=== PATIENT | female | born 1965 | race Caucasian/White ===

== ENCOUNTER 2022-09-10 11:30 | Day surgery (SDC) | payer BC ==
[2022-09-08 12:05] LABS: Absolute Lymphocytes (CBC) 1.3 K/uL (0.7-4.9); Hematocrit 34.5 % (36.0-45.0); Lymphocytes % 22.6 % (15.3-44.8); MCV 82.2 fL (80-100); MPV 8.1 fL (7.6-11.3)
[2022-09-08 12:08] LABS: Protime INR 0.98
[2022-09-08 12:22] LABS: Potassium 4.2 mEq/L (3.5-5.1)
--- NOTE | 2022-09-08 12:36 | RAD REPORT ---
EXAM DESCRIPTION: Linh Mariee And Yasmine (2 Views)09/08/2022 11:49 am CLINICAL HISTORY: Preop for cardiac catheterization COMPARISON: 2020 FINDINGS: The lungs appear clear of acute infiltrate. The heart is borderline enlarged IMPRESSION: No acute abnormalities displayed
--- NOTE | 2022-09-09 14:39 | EKG ---
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
[2022-09-10] MEDS ORDERED: NA CHLORIDE 0.9% 500 ML ONE (11:56)
[2022-09-10] MEDS ORDERED: HEPARIN 10,000 UNIT/10 ML VIAL IV ONE (12:54)
[2022-09-10] MEDS ORDERED: ASPIRIN 325 MG TAB ONE (12:55)
[2022-09-10] MEDS ORDERED: CLOPIDOGREL 75 MG TABLET ONE (12:55)
[2022-09-10] MEDS ORDERED: TICAGRELOR 90 MG TABLET PO ONE (12:55)
[2022-09-10] MEDS ORDERED: FENTANYL CITR 100 MCG/2 ML ONE (12:56)
[2022-09-10] MEDS ORDERED: MIDAZOLAM HCL 2 MG/2 ML INJ ONE (12:56)
[2022-09-10] MEDS ORDERED: HEPARIN 5000 UNIT/ML 1 ML VIAL ONE (12:56)
[2022-09-10] MEDS ORDERED: VERAPAMIL HCL 10 MG/4 ML VIAL IV ONE (12:57)
--- NOTE | 2022-09-10 14:49 | OP ---
Date of Procedure: 09/10/2022 Surgeon: KETURAH THOMPSON Procedure Performed: Selective coronary angiogram. Indication: Severe aortic valve stenosis before AVR. Access: 1.Right radial artery 6-Slovak closed with TR band. 2.Right femoral artery 4-Slovak closed with manual pressure. Complications: None. Bleeding: Less than 20 mL. Description Of Procedure: After risks, benefits, and alternatives were explained, the patient agreed to procedure and signed informed consent. [facility] and draped in the usual sterile fashion. Given fentanyl and Versed in incremental do ses to achieve adequate moderate sedation for a total sedation time of 50 minutes. Then, I accessed right radial artery using pediatric micropuncture kit, placed a 6-Slovak Slender sheath and took a 5- Slovak [place] 4.0 catheter into the aortic root and I could not engage the left main or the right ronnie nary artery due to significant tortuosity. Then, I decided to abort and access the right groin and u sing micropuncture kit, ultrasound guidance of fluoroscopy, and placed a 4-Slovak [place] sheath. T hen, I took a 4-Slovak JR4 catheter into the aortic root, engaged the left main, took standard views. Then, I exchanged for 4-Slovak JR4 catheter, engaged the RCA, took standard views and then removed the catheter and the sheath, and manual pressure was applied for the groin with good hemostasis. The n, the right radial sheath was removed and TR band was applied with good hemostasis. Findings: 1.Left main; large, normal. 2.LAD; proximal to mid, there was a focal area of 20% to 30%. The rest of the artery is normal. No rmal diagonal branches. 3.Left circumflex is normal. 4.RCA is normal and it is small and nondominant. Large circ and it is dominant. Conclusion: Mild nonobstructive coronary artery disease. Plan: Proceed with aortic valve replacement. SR/MODL Voice ID: [id number] Report ID: [id number]
[2022-09-10 16:36] VITALS: BP 129/73; O2SAT 93
== END 2022-09-10 16:52 | disposition home or self-care (01) ==
LOC: CCL 11:30
PROVIDERS: ATTEND Internal Medicine
DX: I35.0 Nonrheumatic aortic (valve) stenosis (principal); I25.10 Atherosclerotic heart disease of native coronary artery without angina pectoris; I34.0 Nonrheumatic mitral (valve) insufficiency; I51.7 Cardiomegaly; Q23.1 Congenital insufficiency of aortic valve; K21.9 Gastro-esophageal reflux disease without esophagitis; E66.9 Obesity, unspecified; Z68.36 Body mass index [BMI] 36.0-36.9, adult; Z79.899 Other long term (current) drug therapy; Z88.5 Allergy status to narcotic agent
CPT/HCPCS: 93005; 85025; 80048; 36415; 85610; 85730; 71046; 93454; 76937; C1893; Q9967; J1644; J2250; J3010; J7040